=== PATIENT | female | born 1985 | race Caucasian/White ===

== ENCOUNTER 2019-04-19 12:15 | Inpatient (IN) | payer MEDICAID ==
[~2019-04-19] VITALS: Ht 154.9 cm; Wt 69.7 kg
[~2019-04-19 12:15] MED LIST: PREN-93 PO
[2019-04-19 12:24] VITALS: BP 117/75; PULSE 115; RESP 18; Ht 154.9 cm; Wt 69.7 kg
--- NOTE | 2019-04-19 15:05 | HP ---
Date/Time of Note Date/Time of Note DATE: 04/19/19 TIME: 15:02 OB - History Hx of Present Free Text/Dictation @31+wks GA Limited Care +FFN CXL 2.2 cm : 2 Para: 1 Care: Good Care Ultrasounds: Normal mid trimester US Obstetrical Complications: None Medical Complications: None Past Family/Social History * Past Medical, Surgical, Family and Obstetric Histories reviewed from chart. OB Admission Exam Vital Signs Vital Signs Vital Signs Date Temp Pulse Resp B/P (MAP) Pulse Ox O2 O2 Flow FiO2 Time Delivery Rate 04/19/19 98.3 115 18 117/75 Room Air 12:24 (89) Physical Exam Abdomen: WNL Cervical Dilatation: None Effacement: 0% Station: Ballotable Heart Rate: 150's Accelerations: Accelerations Present Decelerations: No Decelerations Varibility: Marked Last 72 hours Lab Results CBC & BMP 04/19/19 12:59 OB Assessment/Plan Reason for admission: observation Other Assessment: PMH Denies PSH denies Plan: Expectant Management Other plan: 1,Mag 2.Steroids 3.Continuos monitoring 4.Close Observation 5.Perinatology consult 5.Neonatology consult OZZIE BAILON M.D. Apr 19, 2019 15:05
--- NOTE | 2019-04-19 15:08 | TRIAGE ---
OB Triage Datetime Report Generated by CPN: 04/19/2019 15:08 Datetime: 04/19/2019 14:30 Stage of : OB Triage Maternal Assessment Level of Consciousness: Keenly Alert, Responsive Labor Evaluation Frequency: 7UC/HR Monitor Mode: External Duration (sec)2399: 50-90 Quality: Moderate Pattern: Normal: <= 5 Contractions in 10 Minutes Heart Rate FHR Baseline Rate: 135 Monitor Mode: External US FHR Baseline Changes: No Baseline Change Variability: Moderate 6-25 bpm Accelerations: 15X15 Category: Category I Pain Assessment Pain Scale: 0 Pain Goal: 3 Vaginal Exam Membrane Status: Intact Vaginal Bleeding: None Datetime: 04/19/2019 13:30 Stage of : OB Triage Maternal Assessment Level of Consciousness: Keenly Alert, Responsive Labor Evaluation Frequency: 6UC/HR Monitor Mode: External Duration (sec)2399: 60-90 Quality: Moderate Pattern: Normal: <= 5 Contractions in 10 Minutes Heart Rate FHR Baseline Rate: 135 Monitor Mode: External US FHR Baseline Changes: No Baseline Change Variability: Moderate 6-25 bpm Accelerations: 15X15 Category: Category I Pain Assessment Pain Scale: 0 Pain Goal: 3 Vaginal Exam Membrane Status: Intact Vaginal Bleeding: None Datetime: 04/19/2019 13:00 Labor Evaluation Frequency: 3/30 minutes Duration (sec)2399: 60 Heart Rate FHR Baseline Rate: 130 Monitor Mode: External US Variability: Moderate 6-25 bpm Accelerations: 15X15 Category: Category I Datetime: 04/19/2019 12:56 Pool: Negative Datetime: 04/19/2019 12:21 Assessment Type: Triage EGA: 31.1 Maternal Assessment Level of Consciousness: Keenly Alert, Responsive DTR's/Clonus: DTRs 2+; No Clonus Headache: Denies Blurred Vision: No Respiratory Effort: Unlabored; Regular Rhythm; Equal Expansion Breath Sounds, Left: Clear and Equal Breath Sounds, Right: Clear and Equal Nausea/Vomiting: Denies RUQ Epigastric Pain: Denies Lower Extremities Edema: None Degree: None Upper Extremities Edema: None Degree: None Facial Edema: None Fall Risk Assessment History of Falling: (0) No Secondary Diagnosis: (0) No Ambulatory Aid: (0) Bedrest/Nurse Assist IV Therapy: (0) No Gait: (0) Normal/Bedrest/Immobile Mental Status: (0) Oriented to Own Ability Fall Score: 0 Fall Risk Score Definition: No Risk: No action required Datetime: 04/19/2019 12:20 Time of Arrival: 04/19/2019 12:05 EGA: 34.3 Arrived By: Ambulatory Arrived From: Home Chief Complaint: PT. HERE C/O VAG. PRESSURE AND VAG. D/C Movement: Present Contractions: Denies/Absent Rupture of Membranes: Denies Vaginal Bleeding: None Vaginal Discharge: Present Recent Sexual Intercouse: Denies Abdominal Trauma: Not Applicable Patient Complaints: None Time Provider Notified: 04/19/2019 12:36 Provider Notified: ADAMARIS Initial Plan: EFM/EFW/BPP/FFN/CVL/CBC/UA Datetime: 04/19/2019 12:18 Monitor Mode: External Monitor Mode: External US
[2019-04-19] MEDS ORDERED: MAGNESIUM SULFATE 4 GM/100 ML 100 ML IV ONE (15:30)
[2019-04-19] MEDS ORDERED: ACETAMINOPHEN 325 MG TAB PO PRN (15:30)
[2019-04-19] MEDS ORDERED: ONDANSETRON 4 MG INJ IV PRN (15:30)
[2019-04-19] MEDS ORDERED: MAGNESIUM SULFATE 4 GM/100 ML 100 ML ONE (15:35)
[2019-04-19] MEDS: LACTATED RINGER'S 1,000 ML IV SCH ×2 (16:12→23:24)
[2019-04-19] MEDS: MAGNESIUM SULFATE 20 GM/500 ML 500 ML IV SCH (17:12)
[2019-04-19] MEDS: BETAMET NA PHOS/AC(6 MG/ML) 2 ML INJ SYG IM SCH (18:14)
[2019-04-20] MEDS: MAGNESIUM SULFATE 20 GM/500 ML 500 ML IV SCH ×4 (01:24→23:32)
[2019-04-20] MEDS: LACTATED RINGER'S 1,000 ML IV SCH ×3 (03:17→23:24)
[2019-04-20] MEDS: PRENATAL VITAMIN PO SCH (11:05)
--- NOTE | 2019-04-20 11:39 | QN ---
Documentation Comment Neonatology consult consult at the request of Dr. Reid Mother presented to [facility] at 35 and 4/7 weeks of gestation with a short cervix breech presentation and labor. Mother is 33 years old 2 para 1 with an unremarkable course. I spoke to the mother about the risk of delivery including but not limited to the following 1. Respiratory there is a mild risk for respiratory distress or transient tachypnea of the requiring oxygen or nasal cannula support increased if delivery is by section. this infant is also at mild risk for apnea prematurity which may require nasal cannula support or caffeine. Usually these entities resolve between 35 and 36 weeks of gestation. 2. Cardiac: These infants may have some mild hypotension rarely requiring normal saline support. Ductus arteriosus usually does close in these infants soon after and so this is only a very minimal risk rarely if ever requires any further intervention. 3. Sepsis: The infant is at minimal risk for sepsis unless she has prolonged rupture of membranes. Will need to follow-up her GBS status and will consider antibiotics depending on the clinical course. 4. Jaundice of the : We will need to monitor bilirubins and check blood type and Dari. Consider phototherapy as necessary 5. Hypoglycemia: infants are at mild to moderate risk for hypoglycemia increased if there is gestational diabetes which by report this mother does not have. Accu-Cheks will be monitored after follow-up closely. 6. The very low risk for any morbidity in these infants and anticipate discharge would happen within 1 to 3 weeks of delivery 7. Growth and nutrition: These infants may have difficulty with nutritive support and may require gavage feedings and premature formula or breastmilk with formula fortifier and monitor for weight gain. Usually takes anywhere between 1 and 3 weeks for these infants to be able to nipple adequately. Thank you for this consult will be available for care of this infant as necessary. Length of consult was 45 minutes of which 50% was in direct patient contact with the mother MARCOS MILLS MD Apr 20, 2019 11:39
--- NOTE | 2019-04-20 17:51 | PN ---
Date/Time of Note Date/Time of Note DATE: 04/20/19 TIME: 17:48 OB Subjective Subjective Subjective Patient seen and examined. She states good movement. She denies nausea, vomiting, shortness of breath, chest pain, abdominal pain, headache, visual changes, vaginal bleeding or LOF. OB Objective Objective Objective General: Patient appears well, alert and oriented, NAD, appropriate mood and affect ABD: gravid, soft, non-tender. Back: No CVA tenderness (B/L) LE: Mild edema. No clubbing, cyanosis, edema, thigh or calf tenderness bilaterally FHT: 130 bpm , moderate variability with acceleration, no deceleration-category I Contractions: Occasional OB Assessment/Plan Other plan: 33-year-old 2 para 0-1-0-1 with single intrauterine at 35 weeks and 4 days with a PENNY of 05/21/2019 admitted for history of labor at approximately 28 weeks and contraction - heart rate category 1 -Continue external monitoring and toco -Ultrasound performed, cervical length 2.2 cm -She has received first dose of betamethasone at 18:14 yesterday, will receive second dose today -Follow-up by laborist RANDY JAMESON Apr 20, 2019 17:51
[2019-04-20] MEDS: BETAMET NA PHOS/AC(6 MG/ML) 2 ML INJ SYG IM SCH (18:48)
[2019-04-21] MEDS: LACTATED RINGER'S 1,000 ML IV SCH (04:55)
--- NOTE | 2019-04-21 07:35 | CONS ---
DATE OF ADMISSION: 04/19/2019 DATE OF CONSULTATION: 04/20/2019 HISTORY OF PRESENT ILLNESS: The patient is G2, P1, currently at 35 weeks and 4 days, presented with contractions. Cervical exam shows 1 cm and some effacement. She had been placed on magnesium sulfat e, given betamethasone x1 dose. She is to be given a second dose this evening. SURGICAL HISTORY: None significant. OBSTETRIC HISTORY: delivery at 32 weeks. She does mention placental abruption, but after di scussing with the patient and ____ the details, it was essentially a delivery. REVIEW OF SYSTEMS: All systems reviewed and negative. heart tones reassuring. No contraction s. IMPRESSION: Intrauterine at 35 weeks and 4 days on magnesium sulfate and status post ____ x1. History of a delivery. RECOMMENDATIONS: Discontinue magnesium sulfate tomorrow morning. If there is no evidence of contrac tions or cervical change, the patient can be discharged home. Given the questionable prior OB histor y, we recommend NST twice weekly until delivery. Dictated By: LILI MOORE/CESILIA Conf#: [id number] DID#: [id number]
[2019-04-21] MEDS: PRENATAL VITAMIN PO SCH (08:39)
--- NOTE | 2019-04-21 18:32 | QN ---
Documentation Comment She denies any contraction, leaking of fluid, vaginal bleeding or decreased movement. Examination: General appearance alert and oriented x4 does not appear to be in acute distress Abdomen: Soft, gravid, fundal height correlate with gestational age NST: Category 1 no contraction Extremities: No calf tenderness, no click no edema no cord palpable Assessment IUP at 35 weeks and 5 days Admitted for contractions and labor status post 2 dose of steroid Was on magnesium for steroid window Mag Dc d Status post perinatology neonatology consultation Per recommendation by perinatologist can be discharged home if stable and asymptomatic after magnesium was DC'd today s/p SW consultation for transferring her insurance. Patient stable for discharge. Strict labor precautions kick count and follow-up in 3 days in triage until she establish her insurance and officially transfer her care discussed with the patient Referred to Dr. Rai after admission her care Patient verbalized understanding all the above instructions. She agreed to comply with instructions. JEREMIAH BIANCHI MD Apr 21, 2019 18:32
--- NOTE | 2019-04-21 18:36 | DS ---
Date/Time of Note Date/Time of Note DATE: 04/21/19 TIME: 18:33 Discharge Summary Admission/Discharge Info Admit Date/Time Apr 19, 2019 at 14:58 Discharge Date/Time Apr 21, 2019 at 11:10 Discharge Diagnosis labor Patient Condition: Good Consults Neonatology/neonatology consultation Procedures steroids and tocolysis with magnesium Hx of Present Illness 33-year-old G2, P1 with IUP at 35 weeks and 5 days presented with complaint of contractions and was noted to have positive fibronectin and short cervix. She was admitted for tocolysis and for steroids. She received 2 dose of steroid and contractions subsided after received magnesium. She remained s table during hospitalization. On hospital day #3 patient was a stable for discharge and she was asymptomatic. She had an insurance in [place] that was in the process of transferring to [place]. She received social media project manager consultation while in-house. Advised the patient to return to triage in 3 days for testing until she reestablish her care and transfer to another provider in the area. Referral for transfer OB care provided. Patient verbalized understanding. Strict labor precautions kick count follow-up in 3 days in triage discussed with the patient. Patient verbalized understanding and all questions answered to patient's best satisfaction Hospital Course Complicated for contractions status post total lysis with magnesium and received steroids for lung maturity. Otherwise was uncomplicated. Home Meds Reported Medications Vit No.124/Iron/FA ( Vitamin Tablet) 1 Each Tablet, 1 EACH PO DAILY, TAB 04/19/19 Follow-up Plan In 3 days with triage for testing. Primary Care Provider Care Physician No Primary Time spent on discharge: > 30 minutes JEREMIAH BIANCHI MD Apr 21, 2019 18:36
== END 2019-04-21 11:10 | disposition home or self-care (01) | DRG 832 ==
LOC: OBT 12:15 → L-D 12:17 → OBT 14:58 → PP1 20:36
PROVIDERS: ADMIT Obstetrics & Gynecology; ATTEND Obstetrics & Gynecology
DX: O47.03 False labor before 37 completed weeks of gestation, third trimester (principal); O26.873 Cervical shortening, third trimester; Z3A.35 35 weeks gestation of pregnancy
CPT/HCPCS: 76815; 76817; 76818; 81001; 82731; 83735; 84112; 85025; 86592; 86703; 86762; 86900; 86901; 87086; 87340; G0463; J0702; J3475; J7120

== ENCOUNTER 2019-04-24 13:35 | Outpatient (CLI) | payer SELFPAY ==
[2019-04-24 14:00] VITALS: BP 110/60; PULSE 92; RESP 18
== END 2019-04-24 16:30 | disposition home or self-care (01) ==
LOC: OBT 13:35 → L-D 13:35 → OBT 16:30
PROVIDERS: ATTEND Obstetrics & Gynecology
DX: O62.9 Abnormality of forces of labor, unspecified (principal); Z3A.36 36 weeks gestation of pregnancy
CPT/HCPCS: 76818

== ENCOUNTER 2019-05-20 11:12 | Inpatient (IN) | payer MEDICAID ==
[~2019-05-20] VITALS: Ht 157.5 cm; Wt 71.3 kg
[2019-05-20 11:49] VITALS: Ht 157.5 cm; Wt 71.3 kg
[2019-05-20 11:50] VITALS: BP 114/63; PULSE 68; RESP 18
[2019-05-20] MEDS ORDERED: CARBOPROST 250 MCG INJ IM PRN ×2 (12:00→18:00)
[2019-05-20] MEDS ORDERED: MISOPROSTOL 200 MCG TAB PR PRN ×2 (12:00→18:00)
[2019-05-20] MEDS ORDERED: OXYTOCIN 30 UNITS/LR 500 ML IV PRN ×2 (12:00→18:00)
[2019-05-20] MEDS ORDERED: LACTATED RINGER'S 1,000 ML IV SCH ×2 (12:00→17:49)
[2019-05-20] MEDS ORDERED: CEFAZOLIN 2 GM/50 ML (PMX) 50 ML IVPB SCH (12:00)
[2019-05-20] MEDS ORDERED: METHYLERGONOVINE 0.2 MG INJ IM PRN ×2 (12:00→18:00)
[2019-05-20] MEDS ORDERED: LACTATED RINGER'S 1,000 ML IV ONE (12:30)
[2019-05-20] MEDS ORDERED: AZITHROMYCIN 500MG/NS (PMX) 250 ML IVPB ONE (12:30)
[2019-05-20] MEDS ORDERED: CITRIC ACID/NA CITRATE 30 ML CUP PO ONE (12:30)
[2019-05-20] MEDS ORDERED: METOCLOPRAMIDE 10 MG INJ ONE (12:49)
[2019-05-20] MEDS ORDERED: ONDANSETRON 4 MG INJ ONE (12:49)
[2019-05-20] MEDS ORDERED: morphine SULFATE/PF (10 MG/10 ML) INJ ONE (12:49)
[2019-05-20] MEDS ORDERED: KETOROLAC 30 MG INJ ONE (12:50)
[2019-05-20] MEDS ORDERED: PHENYLephrine (100 MCG/ML) 10ML SYG ONE (13:08)
[2019-05-20] MEDS ORDERED: FENTAnyl 50 MCG/ML VIAL ONE (13:41)
[2019-05-20] MEDS ORDERED: OXYTOCIN 30 UNITS/LR 500 ML IV ONE (13:43)
[2019-05-20] MEDS ORDERED: KETOROLAC 30 MG INJ IV PRN (14:00)
[2019-05-20] MEDS ORDERED: ONDANSETRON 4 MG INJ IV PRN ×2 (14:00)
[2019-05-20] MEDS ORDERED: NALOXONE (0.4 MG/ML) INJ IV PRN (14:00)
[2019-05-20] MEDS ORDERED: HYDROmorphONE 1 MG/5 ML IV SYRINGE IV PRN ×3 (14:00)
[2019-05-20] MEDS ORDERED: morphine 2 MG INJ IV PRN ×3 (14:00)
[2019-05-20] MEDS ORDERED: DIPHENHYDRAMINE 50 MG INJ IV PRN ×2 (14:00)
[2019-05-20 17:00] VITALS: BP 110/58; PULSE 68; RESP 16
[2019-05-20] MEDS ORDERED: OXYTOCIN 30 UNITS/LR 500 ML IV SCH (17:49)
[2019-05-20] MEDS ORDERED: OXYCODONE/ACETAMINOPHEN (5/325) TAB PO PRN ×2 (18:00)
[2019-05-20 20:00] VITALS: BP 124/63; PULSE 70; RESP 18
[2019-05-20] MEDS: LANOLIN HPA 1 PKT TOP PRN (21:58)
[2019-05-20] MEDS: SENNA/DOCUSATE NA (8.6MG/50MG) TAB PO SCH (21:58)
[2019-05-21 00:15] VITALS: BP 107/58; PULSE 75; RESP 18
[2019-05-21 03:50] VITALS: BP 100/53; PULSE 70; RESP 18
[2019-05-21] MEDS: KETOROLAC 30 MG INJ IV PRN ×2 (05:49→13:11)
[2019-05-21 08:00] VITALS: BP 96/54; PULSE 68; RESP 16
[2019-05-21] MEDS: SENNA/DOCUSATE NA (8.6MG/50MG) TAB PO SCH ×2 (09:13→20:56)
[2019-05-21] MEDS: FERROUS SULFATE (EC) 325 MG TAB PO SCH ×2 (13:11→20:56)
[2019-05-21] MEDS: IBUPROFEN 800 MG TAB PO SCH ×2 (14:00→21:53)
[2019-05-21 15:40] VITALS: BP 107/57; PULSE 81; RESP 18
[2019-05-21 20:00] VITALS: BP 110/55; PULSE 92; RESP 20
[2019-05-22 04:00] VITALS: BP 98/53; PULSE 71; RESP 20
[2019-05-22] MEDS: IBUPROFEN 800 MG TAB PO SCH ×3 (06:05→22:32)
[2019-05-22 08:00] VITALS: BP 98/56; PULSE 80; RESP 16
[2019-05-22] MEDS: SENNA/DOCUSATE NA (8.6MG/50MG) TAB PO SCH ×2 (09:50→21:03)
[2019-05-22] MEDS: FERROUS SULFATE (EC) 325 MG TAB PO SCH ×3 (09:50→21:03)
[2019-05-22 15:39] VITALS: BP 96/55; PULSE 67; RESP 16
[2019-05-22 21:00] VITALS: BP 110/58; PULSE 79; RESP 18
[2019-05-23 04:15] VITALS: BP 105/60; PULSE 75; RESP 18
[2019-05-23] MEDS: IBUPROFEN 800 MG TAB PO SCH ×2 (06:11→13:44)
[2019-05-23 08:00] VITALS: BP 108/66; PULSE 79; RESP 18
[2019-05-23] MEDS: LANOLIN HPA 1 PKT TOP PRN (08:58)
[2019-05-23] MEDS: FERROUS SULFATE (EC) 325 MG TAB PO SCH ×2 (08:58→13:44)
[2019-05-23] MEDS: SENNA/DOCUSATE NA (8.6MG/50MG) TAB PO SCH (08:58)
[2019-05-23] MEDS ORDERED: DIPHTH/TET/ACEL PERTUSS (ADULT) 0.5 ML VIAL IM* ONE (09:00)
== END 2019-05-23 17:12 | disposition home or self-care (01) | DRG 788 ==
LOC: OBT 11:12 → L-D 11:13 → OBT 12:00 → L-D 12:00 → PP1 16:55
PROVIDERS: ADMIT Obstetrics & Gynecology; ATTEND Obstetrics & Gynecology
PROC: 10D00Z1 Extraction of Products of Conception, Low, Open Approach (ICD-10-PCS; principal; 2019-05-20 12:30)
DX: O32.1XX0 Maternal care for breech presentation, not applicable or unspecified (principal); Z3A.38 38 weeks gestation of pregnancy; Z37.0 Single live birth; Z23 Encounter for immunization
CPT/HCPCS: 76815; 85025; 85610; 85730; 86592; 86850; 86900; 86901; 90715; 99464; G0463; J0456; J0690; J1885; J2274; J2370; J2405; J2590; J2765; J3010; J7120